=== PATIENT | male | born 1960 | race Caucasian/White ===

== ENCOUNTER → 2017-12-02 09:06 | Outpatient (CLI) | payer BC, SELFPAY ==
[2017-12-02 11:12] LABS: Alanine Aminotransferase 68 U/L (12-78); Albumin Level 3.9 gm/dL (3.4-5.0); Albumin/Globulin Ratio 1.1 (1.1-1.8); Alkaline Phosphatase 66 U/L (46-116); Anion Gap 14.4 mEq/L (5-15); Aspartate Amino Transferase 25 U/L (15-37); Bilirubin,Total 0.6 mg/dL (0.2-1.0); Blood Urea Nitrogen 11 mg/dL (7-18); Calcium 9.1 mg/dL (8.5-10.1); Carbon Dioxide 28 mmol/L (21.0-32.0); Chloride 106 mmol/L (98-107); Chol/HDL Ratio 5.8 (1-3.5); Cholesterol 191 mg/dL (140-200); Creatinine,Serum 0.76 mg/dL (0.70-1.30); Estimated Glomerular Filt Rate 106 ml/min (>60); GFR (African American) 128 ML/MIN (>60); Globulin 3.4 gm/dl (1.3-3.2); Glucose 101 mg/dL (74-106); HDL Cholesterol 33 mg/dL (27-67); LDL Cholesterol 100 mg/dL (0-130); Potassium 4.4 mmoL/L (3.5-5.1); Prostate Specific Ag Screen 0.9 ng/mL (0.0-4.0); Sodium 144 mmol/L (136-145); Total Protein,Serum 7.3 gm/dL (6.4-8.2); Triglycerides 288 mg/dL (30-200); VLDL Cholesterol 58 mg/dL (0-40)
[2017-12-02 11:13] LABS: Basophils # 0.1 K/mm3 (0-0.2); Basophils % 0.9 % (0.1-2.0); Eosinophils # 0.2 K/mm3 (0.0-0.4); Eosinophils % 3.5 % (0.1-12.0); Hematocrit 45.7 % (42.0-52.0); Hemoglobin 15.3 g/dL (14.1-18.0); Lymphocytes # 2.8 K/mm3 (0.7-4.5); Mean Corpuscular HGB Conc 33.6 g/dL (31.8-35.4); Mean Corpuscular Hemoglobin 29.7 pg (27.0-31.2); Mean Corpuscular Volume 88.5 fl (80-94); Monocytes # 0.5 K/mm3 (0.1-1.0); Monocytes % 7.2 % (1.7-9.3); Neutrophils # 2.9 K/mm3 (1.8-7.8); Neutrophils % 45.3 % (37.0-80.0); Platelet Count 215 K/mm3 (142-424); Red Blood Count 5.16 M/mm3 (4.60-6.20); Red Cell Distribution Width 12.6 % (11.5-17.5); White Blood Count 6.5 K/mm3 (4.8-10.8)
== END ==
PROVIDERS: Visit Provider Family Medicine
DX: K21.9 Gastro-esophageal reflux disease without esophagitis (principal); E78.5 Hyperlipidemia, unspecified
CPT/HCPCS: 36415; 80053; 80061; 85025; G0103

== ENCOUNTER → 2019-09-03 10:36 | Outpatient (CLI) | payer BC, SELFPAY ==
[2019-09-03 11:05] LABS: Basophils # 0.1 K/mm3 (0-0.2); Basophils % 1.3 % (0.1-2.0); Eosinophils # 0.2 K/mm3 (0.0-0.4); Eosinophils % 3.5 % (0.1-12.0); Hematocrit 45.1 % (42.0-52.0); Hemoglobin 15.2 g/dL (14.1-18.0); Lymphocytes # 1.9 K/mm3 (0.7-4.5); Lymphocytes % 37.8 % (10-50); Mean Corpuscular HGB Conc 33.8 g/dL (31.8-35.4); Mean Corpuscular Hemoglobin 30.4 pg (27.0-31.2); Mean Corpuscular Volume 90.2 fl (80-94); Mean Platelet Volume 10.3 fl (7.4-10.4); Monocytes # 0.4 K/mm3 (0.1-1.0); Monocytes % 7.1 % (1.7-9.3); Neutrophils # 2.6 K/mm3 (1.8-7.8); Neutrophils % 50.3 % (37.0-80.0); Platelet Count 226 K/mm3 (142-424); Red Cell Distribution Width 12.7 % (11.5-17.5); White Blood Count 5.1 K/mm3 (4.8-10.8)
[2019-09-03 12:11] LABS: Chloride 107 mmol/L (98-107); Potassium 4.3 mmoL/L (3.5-5.1); Sodium 137 mmol/L (136-145)
[2019-09-03 12:14] LABS: Alanine Aminotransferase 209 U/L (12-78); Albumin Level 4.4 g/dl (3.5-5.0); Albumin/Globulin Ratio 1.4 (1.1-1.8); Alkaline Phosphatase 80 U/L (38-126); Anion Gap 12.3 mEq/L (5-15); Aspartate Amino Transferase 174 U/L (17-59); Bilirubin,Total 0.8 mg/dl (0.2-1.3); Blood Urea Nitrogen 11 mg/dl (9-20); Calcium 9.3 mg/dl (8.4-10.2); Carbon Dioxide 22 mmol/L (22.0-30.0); Chol/HDL Ratio 4.2 (1-3.5); Cholesterol 205 mg/dl (140-200); Estimated Glomerular Filt Rate 138 ml/min (>60); GFR (African American) 167 ML/MIN (>60); Globulin 3.2 g/dL (1.3-3.2); Glucose 105 mg/dl (74-100); HDL Cholesterol 49 mg/dl (40-60); Total Protein,Serum 7.6 g/dl (6.3-8.2); Triglycerides 119 mg/dl (30-150); VLDL Cholesterol 24 mg/dL (0-40)
[2019-09-03 12:25] LABS: Direct LDL Cholesterol 163.12 mg/dL (100-129)
[2019-09-03 12:45] LABS: Thyroid Stimulating Hormone 0.51 uIU/mL (0.465-4.68)
[2019-09-03 13:22] LABS: Prostate Specific Ag Screen 1.3 ng/ml (0.0-4.0)
== END ==
PROVIDERS: Visit Provider Family Medicine
DX: I10 Essential (primary) hypertension (principal); R00.0 Tachycardia, unspecified; E78.5 Hyperlipidemia, unspecified; M19.90 Unspecified osteoarthritis, unspecified site; Z12.5 Encounter for screening for malignant neoplasm of prostate
CPT/HCPCS: 36415; 80053; 80061; 84443; 85025; G0103

== ENCOUNTER → 2019-09-27 08:00 | Outpatient (CLI) | payer BC, SELFPAY ==
--- NOTE | 2019-09-27 08:03 | US_ITS ---
PROCEDURE: US ABDOMEN LIMITED CLINICAL INDICATION: ELEVATED LIVER FUNCTION TEST COMPARISON: No exams were available for comparison FINDINGS: PANCREAS: Unremarkable. No obvious mass or abnormal fluid collection. No ductal dilatation LIVER: Fatty liver RIGHT KIDNEY: Hyperechoic focus noted along the lower pole of the right kidney nonspecific possibly due to fat containing nodule or calcification. CT of the kidneys without and with contrast may provide further evaluation. GALLBLADDER: No gallstones, gallbladder wall thickening, pericholecystic fluid, or biliary dilatation. IMPRESSION: 1. No evidence of cholelithiasis. 2. Fatty liver 3. Hyperechoic area along the lower pole of the right kidney which could be due to a nonshadowing stone or fat containing lesion and may be better evaluated with CT of the abdomen without and with contrast peer Dictated by: Joce Diamond MD 10/02/2019 09:47 Electronically signed by Joce Diamond MD in [place] 10/02/2019 09:47
== END ==
PROVIDERS: PCP Family Medicine; Visit Provider Family Medicine
DX: R79.89 Other specified abnormal findings of blood chemistry (principal)
CPT/HCPCS: 76705

== ENCOUNTER → 2020-10-14 12:19 | Outpatient (CLI) | payer BC, SELFPAY ==
--- NOTE | 2020-10-14 | CA_ITS ---
APPROVED REPORT Exam: Exercise Treadmill Technologist: brett johansen, Ht: 5 ft 9 in Wt: 197 lbs BSA: 2.05 m2 HR: 97 bpm BP: 135/106 mmHg Indications: Precordial chest pain Medical History Medications: Crestor,,,,, MeLOXICAM,,,,, Losartan/HCTZ,,,,, Esomeprazole,,,,, Allergies: NKA Cardiac Risk Factors: HTN, Hyperlipidemia, FHX of CAD Stress Test Details Test: Doc HR Resting HR: 90 bpm Max Heart Rate (APMHR): 161.590186 bpm Max HR Achieved: 151 bpm Target HR (85% APMHR): 136.734885 bpm % of APMHR: 93.79 Recovery HR: 140 bpm BP Resting BP: 144/108 mmHg Max BP: 182/90 mmHg Recovery BP: 168.0/84.0 mmHg ECG Resting ECG: NSR, small isolated q wave in lead V2 ( non-diagnostic q wave) Clinical Exercise duration: 07:00 min Highest Stage Achieved: Stage 3: 3.4 mph at 14% grade. Exercise capacity: 10.1 METs Stress ECG Conclusion No chest pain. SOA at peak exercise that resolved with recovery. No arhhythmia or ectopy. Normal ST response to exercise. Normal GXT. Elevated resting DBP. Images reported separately. Test Summary REST . . . . . . . Standing REST . . . . . . . Sitting REST 04:30 0.0 0.0 90 . 144/108 . . Stage 1 01:00 10.0 1.7 113 . . . . Stage 1 02:00 10.0 1.7 122 . . . . Stage 1 03:00 10.0 1.7 122 . 170/ 92 . . Stage 2 01:00 12.0 2.5 132 . . . . Stage 2 02:00 12.0 2.5 138 . . . . Stage 2 . . . . . . . Myoview Injected Stage 2 03:00 12.0 2.5 140 . 182/ 90 . . Stage 3 01:00 14.0 3.4 149 . . . Stop exercise at 07:00 RECOVERY 01:00 0.0 0.0 133 . . . . RECOVERY 02:00 0.0 0.0 126 . . . . RECOVERY 03:00 0.0 0.0 120 . 165/107 . . RECOVERY 04:00 0.0 0.0 115 . 165/107 . . RECOVERY 05:00 0.0 0.0 115 . 169/106 . . RECOVERY 06:00 0.0 0.0 116 . 169/106 . . RECOVERY 07:00 0.0 0.0 115 . 158/ 90 . . RECOVERY 07:18 0.0 0.0 115 . 158/ 90 . . Electronically signed by : Jewel Perez, 10/14/2020 18:03:40
--- NOTE | 2020-10-14 12:28 | NM_ITS ---
APPROVED REPORT Exam: Nuclear Stress Test Indication: chest pain..short of breath Patient Location: Outpatient Stress Tech: Janneth Pyle NM Tech:Mariela Adam, ARRT, RT (R)(N) Ht: 5 ft 9 in Wt: 197 lbs HR: 97 bpm BP: 135/106 mmHg BSA: 2.05 m2 BMI: 29.0 History: chest pain..short of breath Procedure: Patient exercised on Doc protocol 7 minutes and sec, resting heart rate 97 bpm, resting blood pressure 135/106 mmHg, with exercise maximum heart rate achived was 151 bpm which is Greater than 85 % of the maximum predicted heart rate and blood pressure was 182/90 mmHg. Test was stopped due to soa & farigue. Patient denied any complaint of chest pain. Patient has Good exercise capacity, achieved 10.0 METs of workload on treadmill, the blood pressure response to exercise was Adequate. Electrocardiogram Resting electrocardiogram showed sinus rhythm, with exercise there is less than 1.[address] segment depression noted from the baseline EKG. The EKG portion of the exercise Myoview is negative for ischemia. Cardiac Stress and Resting SPECT Images: Cardiac Stress and Resting SPECT images were obtained using technetium 99m Myoview 32.8 mCi stress and 10.54 mCi at rest. Gated SPECT for analysis of segmental wall motion and calculation of the ejection fraction also done, prone images were also obtained. Cardiac stress and resting SPECT images show uniform myocardial activity without segmental perfusion abnormality, computer derived ejection fraction is 62% with no regional wall motion abnormality, right ventricle is normal size and contractility. Conclusion: 1. The EKG portion of the exercise Myoview is negative for ischemia, patient has good exercise capacity achieved 10 mets of workload on treadmill, the blood pressure response to exercise was adequate, there was no exercise-induced chest discomfort. 2. No scintigraphic evidence of reversible ischemia seen, computer derived ejection fraction is 62% with no regional wall motion abnormality, right ventricle is normal size and contractility. 3. Normal Lexiscan Myoview study. Electronically signed by : Jewel Perez, 10/14/2020 18:18:59
--- NOTE | 2020-10-14 14:05 | HMH.ITSHM ---
Current Home Medications as stated by this patient Ilia Santos or employee's representative. []NEXIUM CHOLESTEROL MED MELOXICAM
== END ==
PROVIDERS: PCP Family Medicine; Visit Provider Family Medicine
DX: R07.2 Precordial pain (principal)
CPT/HCPCS: 78452; 93017; A9502

== ENCOUNTER → 2022-07-15 08:47 | Outpatient (CLI) | payer BC, SELFPAY ==
[2022-07-15 10:19] LABS: Alanine Aminotransferase 25 U/L (12-78); Albumin Level 4.4 g/dl (3.5-5.0); Albumin/Globulin Ratio 1.8 (1.1-1.8); Alkaline Phosphatase 55 U/L (38-126); Aspartate Amino Transferase 29 U/L (17-59); Bilirubin,Total 0.9 mg/dl (0.2-1.3); Blood Urea Nitrogen 13 mg/dl (9-20); Calcium 9.3 mg/dl (8.4-10.2); Carbon Dioxide 29 mmol/L (22.0-30.0); Chloride 100 mmol/L (98-107); Cholesterol 216 mg/dl (140-200); Estimated Glomerular Filt Rate 137 ml/min (>60); GFR (African American) 166 ML/MIN (>60); Globulin 2.4 g/dL (1.3-3.2); Glucose 92 mg/dl (74-100); HDL Cholesterol 36 mg/dl (40-60); Sodium 137 mmol/L (136-145); Total Protein,Serum 6.8 g/dl (6.3-8.2); Triglycerides 196 mg/dl (30-150); VLDL Cholesterol 39 mg/dL (0-40)
[2022-07-15 10:31] LABS: Direct LDL Cholesterol 138.98 mg/dL (100-129)
[2022-07-15 10:49] LABS: Prostate Specific Ag Screen 1.4 ng/ml (0.0-4.0)
== END ==
PROVIDERS: PCP Family Medicine; Visit Provider Family Medicine
DX: E78.5 Hyperlipidemia, unspecified (principal); I10 Essential (primary) hypertension; Z12.5 Encounter for screening for malignant neoplasm of prostate
CPT/HCPCS: 36415; 80053; 80061; G0103

== ENCOUNTER 2022-09-06 10:00 | Outpatient (RCR) | payer BC, SELFPAY | END 2022-09-06 10:05 | disposition home or self-care (01) | LOC: PT 10:00 | PROVIDERS: PCP Family Medicine; Visit Provider Orthopaedic Surgery | DX: M25.562 Pain in left knee (principal); Z96.652 Presence of left artificial knee joint | CPT/HCPCS: 97010; 97014; 97016; 97110; 97140; 97163; 97164; 97530; G0283 ==

== ENCOUNTER 2023-06-16 10:00 | Outpatient (RCR) | payer BC, SELFPAY | END 2023-06-16 11:45 | disposition home or self-care (01) | LOC: PT 10:00 | PROVIDERS: Visit Provider Orthopaedic Surgery | DX: M25.561 Pain in right knee (principal); Z96.651 Presence of right artificial knee joint | CPT/HCPCS: 97010; 97014; 97016; 97110; 97140; 97163; 97164; 97530; G0283 ==

== ENCOUNTER 2024-06-13 10:00 | Outpatient (RCR) | payer BC, SELFPAY | END 2024-06-13 23:59 | disposition home or self-care (01) | LOC: OT 10:00 | PROVIDERS: Visit Provider Orthopaedic Surgery | DX: M25.512 Pain in left shoulder (principal); S46.012A Strain of muscle(s) and tendon(s) of the rotator cuff of left shoulder, initial encounter | CPT/HCPCS: 97014; 97140; 97165; 97530; G0283 ==

== ENCOUNTER 2024-07-16 10:00 | Outpatient (RCR) | payer BC, SELFPAY | END 2024-07-16 23:59 | disposition home or self-care (01) | LOC: OT 10:00 | PROVIDERS: Visit Provider Orthopaedic Surgery | DX: S46.012A Strain of muscle(s) and tendon(s) of the rotator cuff of left shoulder, initial encounter (principal) | CPT/HCPCS: 97014; 97110; 97140; 97168; G0283 ==

== ENCOUNTER 2024-07-19 09:57 | Outpatient (RCR) | payer BC, SELFPAY | END 2024-07-19 23:59 | disposition home or self-care (01) | LOC: OT 09:57 | PROVIDERS: Visit Provider Orthopaedic Surgery | DX: S46.012A Strain of muscle(s) and tendon(s) of the rotator cuff of left shoulder, initial encounter (principal) | CPT/HCPCS: 97014; 97110; 97140; G0283 ==